=== PATIENT | male | born 1960 | race Hispanic/Latino ===

== ENCOUNTER → 2020-10-16 | Outpatient (CLI) | payer BC | END | disposition home or self-care (01) | LOC: SHCH 12:48 | PROVIDERS: ATTEND Internal Medicine Cardiovascular Disease | DX: I20.9 Angina pectoris, unspecified (principal); R07.9 Chest pain, unspecified; R06.09 Other forms of dyspnea | CPT/HCPCS: 93306; 93356 ==

== ENCOUNTER 2020-10-28 05:35 | Day surgery (SDC) | payer BC ==
[2020-10-24 13:04] LABS: BASOPHILS % (AUTO) 0.9 % (0.0-5.0); EOSINOPHILS % (AUTO) 4.1 % (0.0-8.0); HEMATOCRIT 42.2 % (42-54); LYMPHOCYTES % (AUTO) 26.8 % (21.0-51.0); MEAN CORPUSCULAR HEMOGLOBIN 31.1 pg (27.0-33.0); MEAN CORPUSCULAR HGB CONC 35.8 g/dL (32.0-36.0); MEAN CORPUSCULAR VOLUME 86.8 fL (79-99); MONOCYTES % (AUTO) 8.6 % (3.0-13.0); NEUTROPHILS % (AUTO) 59.3 % (40.0-77.0); PLATELET COUNT (AUTO) 207 K/uL (130-400); RED BLOOD CELL COUNT(AUTO) 4.86 MIL/uL (4.50-6.20); RED CELL DISTRIBUTION WIDTH 11.9 % (11.0-15.5)
[2020-10-24 13:15] LABS: CREATININE 1.4 mg/dL (0.5-1.5); POTASSIUM 3.8 mmol/L (3.5-5.1)
[2020-10-24 13:20] LABS: PARTIAL THROMBOPLASTIN TIME 24.7 SEC (26.3-35.5); PROTHROMBIN TIME 10.8 SEC (9.6-11.6)
--- NOTE | 2020-10-25 11:10 | NUR ---
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
[~2020-10-28] VITALS: Ht 182.9 cm; Wt 85.6 kg
[2020-10-28] VITALS (13 sets, daily range): BP systolic 130–156; BP diastolic 70–85
[~2020-10-28 05:35] MED LIST: ASPI-1443 PO; HYDR12.54 PO; LOSA100T58 PO; METO50TA18 PO; OMEP40CA13 PO; SODIUM CHLORIDE 0.9% 500ML 500 ML IV SCH
[2020-10-28] MEDS ORDERED: SODIUM CHLORIDE 0.9% 1000ML 1,000 ML IV ONE (06:52)
[2020-10-28] MEDS ORDERED: NITROGLYCERIN 2 MG/VIAL VIAL IV ONE (07:15)
[2020-10-28] MEDS ORDERED: LIDOCAINE HCL 2% 20ML ONE (07:15)
[2020-10-28] MEDS ORDERED: BIVALIRUDIN 250 MG/VIAL IV ONE (07:15)
[2020-10-28] MEDS ORDERED: IOHEXOL 350 MG/ML 100ML INFUS..BTL IV ONE (07:16)
[2020-10-28] MEDS ORDERED: IOHEXOL-350 50ML VIAL IV ONE (07:18)
[2020-10-28] MEDS ORDERED: MIDAZOLAM HCL 1 MG/ML 2ML VIAL ONE (07:54)
[2020-10-28] MEDS ORDERED: FENTANYL CITRATE PF 50 MCG/1 ML 2ML VIAL ONE (07:54)
[2020-10-28] MEDS ORDERED: NITROGLYCERIN 0.4 MG SL TAB SL PRN (09:00)
[2020-10-28] MEDS ORDERED: DEXTROSE 50%-WATER 50 ML DISP.SYRIN IV PRN (09:00)
[2020-10-28] MEDS ORDERED: GLUCAGON 1MG KIT 1 MG ML IM PRN (09:00)
[2020-10-28] MEDS ORDERED: SODIUM CHLORIDE 0.9% 1000ML 1,000 ML IV SCH (09:00)
[2020-10-28] MEDS ORDERED: METOPROLOL TARTRATE 1 MG/ML 5ML VIAL IV PRN (09:00)
--- NOTE | 2020-10-28 09:15 | NUR ---
ASSUME CARE OF PT POST LHC. RT GROIN WITH NO HEMATOMA OR BLEEDING. PT NOTED TO HAVE MACULAR RASH TO GROINS/THIGHS/CALVES. ALSO C/O ITCHING TO FEET. DR MORAN NOTIFIED
[2020-10-28] MEDS ORDERED: METHYLPREDNISOLONE SOD SUCC 125MG/2ML VIAL ONE (09:21)
[2020-10-28] MEDS ORDERED: DiphenhydrAMINE HCL 50 MG/ML VIAL ONE (09:21)
[2020-10-28] MEDS ORDERED: DiphenhydrAMINE HCL 50 MG/ML VIAL IV SCH (09:30)
[2020-10-28] MEDS ORDERED: METHYLPREDNISOLONE SOD SUCC 125MG/2ML VIAL IVP SCH (09:30)
--- NOTE | 2020-10-28 10:00 | NUR ---
RASH AND ITCHING RESOLVED AFTER RECEIVING 125MG IV SOLUMEDROL AND 50MG IV BENADRYL
--- NOTE | 2020-10-28 14:20 | NUR ---
PT DISCHARGED HOME WITH . PRINTED AND VERBAL DISCHARGE INSTRUCTIONS GIVEN TO PT/,BOTH VERBALIZE UNDERSTANDING. IV CATH REMOVED FROM RT HAND INTACT. NO BLEEDING OR HEMATOMA TO RT GROIN AFTER AMBULATING IN ROOM. NO CHEST PAIN OR SOB
== END 2020-10-28 14:20 | disposition home or self-care (01) ==
LOC: DAH 05:35
PROVIDERS: ATTEND Internal Medicine Cardiovascular Disease
DX: I25.119 Atherosclerotic heart disease of native coronary artery with unspecified angina pectoris (principal); I11.0 Hypertensive heart disease with heart failure; I50.32 Chronic diastolic (congestive) heart failure; E83.52 Hypercalcemia; Z98.890 Other specified postprocedural states; Z90.49 Acquired absence of other specified parts of digestive tract; Z87.891 Personal history of nicotine dependence; Z79.01 Long term (current) use of anticoagulants; Z82.49 Family history of ischemic heart disease and other diseases of the circulatory system; Z82.3 Family history of stroke; Z79.899 Other long term (current) drug therapy; Z79.82 Long term (current) use of aspirin
CPT/HCPCS: 36415; 71045; 80048; 85025; 85610; 85730; 93005; 93458; A4215; A4216; A4221; A4222; A4223 ×3; A4606; A4663; C1760; C1894 ×3; J1200; J1644; J2930; J3490 ×2; J7030; Q9965; Q9967 ×2; J0583; J2250; J3010

== ENCOUNTER → 2024-04-21 | Outpatient (CLI) | payer MEDICARE ==
[~2024-04-21] MED LIST changes: -LOSA100T58 PO; +LOSA100T59 PO; -OMEP40CA13 PO; +OMEP40CA21 PO; -SODIUM CHLORIDE 0.9% 500ML 500 ML IV SCH
[2024-04-21] MEDS: REGADENOSON 0.4 MG/5 ML PF SYG IVP ONE (12:01)
== END | disposition home or self-care (01) ==
LOC: SHCH 07:57
PROVIDERS: ATTEND Internal Medicine Cardiovascular Disease
DX: R07.9 Chest pain, unspecified (principal); I20.9 Angina pectoris, unspecified; R06.00 Dyspnea, unspecified
CPT/HCPCS: 78452; 96374; 93017; J2785; A9500 ×2

== ENCOUNTER → 2024-06-06 | Outpatient (CLI) | payer BC, MEDICARE | END | disposition home or self-care (01) | LOC: SHCH 09:55 | PROVIDERS: ATTEND Internal Medicine Cardiovascular Disease | DX: I08.3 Combined rheumatic disorders of mitral, aortic and tricuspid valves (principal); R06.09 Other forms of dyspnea | CPT/HCPCS: 93306 ==